=== PATIENT | female | born 2005 | race Caucasian/White ===

== ENCOUNTER → 2023-06-21 | Outpatient (CLI) | payer BC ==
--- NOTE | 2023-06-21 17:54 | Diagnostic Imaging Report ---
EXAM: CERVICAL SPINE 3 VIEWS OR LESS INDICATION: Neck pain. COMPARISON: None. FINDINGS: Mild reversal of the normal cervical lordosis. Vertebral body heights are preserved. No fractures. No substantial spondylotic change. Normal prevertebral soft tissues. IMPRESSION: Mild reversal of the normal cervical lordosis may be positional or due to muscle spasm. Cervical spine radiographs are otherwise negative. Dictated by: Dictated on workstation # [id number]
== END ==
LOC: RAD 13:44
PROVIDERS: ATTEND Nurse Practitioner Family
DX: M41.9 Scoliosis, unspecified (principal)
CPT/HCPCS: 72040